=== PATIENT | female | born 1950 | race Caucasian/White ===

== ENCOUNTER → 2023-10-06 14:25 | Outpatient (REF) | payer MEDICARE, OTHER, SELFPAY | LOC: PAVMRI 14:25 | PROVIDERS: ATTENDING PHYSICIAN Internal Medicine; FAMILY PHYSICIAN Internal Medicine | DX: C18.9 Malignant neoplasm of colon, unspecified (principal) | CPT/HCPCS: 74183 ==

== ENCOUNTER → 2024-02-01 13:20 | Outpatient (REF) | payer MEDICARE, OTHER, SELFPAY | LOC: HWRAD 13:20 | PROVIDERS: ATTENDING PHYSICIAN Student in an Organized Health Care Education/Training Program; FAMILY PHYSICIAN Internal Medicine | DX: C25.9 Malignant neoplasm of pancreas, unspecified (principal) | CPT/HCPCS: 74176 ==

== ENCOUNTER → 2024-04-15 12:02 | Outpatient (REF) | payer MEDICARE, OTHER, SELFPAY | LOC: WDC 12:02 | PROVIDERS: ATTENDING PHYSICIAN Internal Medicine | DX: Z12.31 Encounter for screening mammogram for malignant neoplasm of breast (principal) | CPT/HCPCS: 77063; 77067 ==